=== PATIENT | male | born 1950 | race Hispanic/Latino ===

== ENCOUNTER → 2018-06-17 11:02 | Outpatient (CLI) | payer MEDICARE, OTHER, SELFPAY ==
--- NOTE | 2018-06-17 | DI.CT.S_ITS ---
PROCEDURE: CT CHEST WO CON INDICATIONS: SOLIDARY PULMONARY NODULE TECHNIQUE: Noncontrast 2.0-2.5 mm thick sections acquired from the pulmonary apices to the posterior costophrenic angles. 7 mm thick coronal and sagittal MIP reformats were then acquired. A low radiation dose technique was utilized. COMPARISON: [facility], CT, ABDOMEN WITH CONTRAST, 04/02/2013, 10:06. [facility], CT, CHEST/ABD/PEL WITH CONTRAST, 11/25/2017, 22:25. FINDINGS: Image quality: Diagnostic, given the low radiation dose technique. Lungs and pleura: A 5 mm short axis dimension radiodensity seen at or immediately adjacent to the major fissure on the right (series 2 image 101) has not changed from the prior CT scan 11/25/17 and also the remote distant past CT scan 04/02/13. No new nodule has developed. Mediastinum: Heart size is normal. No pericardial effusion. No mediastinal adenopathy by size criteria. Thoracic aorta and central pulmonary arteries are normal in size. Esophagus is normal in caliber. No hiatal hernia. Bones and chest wall: No suspicious bony lesions. No vertebral body compression fractures. No axillary or supraclavicular adenopathy by size criteria. Thyroid gland appears normal. Abdomen: Visualized upper abdomen solid organs and bowel loops appear normal in the absence of contrast. IMPRESSION: Benign small nodular radiodensity anterolateral right lower lung has been stable over time since at least March of 2013. No new lesion has developed, no followup necessary. Dictated by: Juan Arredondo M.D. on 06/17/2018 at 13:42 Approved by: Juan Arredondo M.D. on 06/17/2018 at 13:47
== END ==
PROVIDERS: PCP Family Medicine; Visit Provider Family Medicine
DX: R91.1 Solitary pulmonary nodule (principal)
CPT/HCPCS: 71250

== ENCOUNTER → 2019-06-09 09:34 | Outpatient (CLI) | payer MEDICARE, OTHER, SELFPAY ==
--- NOTE | 2019-06-09 | DI.MRI.S_ITS ---
PROCEDURE: MR SHOULDER RT WO CON INDICATIONS: RIGHT SHOULDER PAIN TECHNIQUE: Noncontrast oblique coronal T2 fast spin echo with fat saturation, oblique sagittal T1 spin echo and T2 fast spin echo with fat saturation, axial T1 spin echo and T2 fast spin echo with fat saturation through the shoulder. COMPARISON: None. FINDINGS: Image quality: Excellent. Rotator cuff: There is tendinosis and moderate grade articular and bursal surface partial-thickness tear involving anterior to mid fibers of the distal supraspinatus at the insertion on the humeral head extending to musculotendinous junction. Distal infraspinatus tendinosis is seen. Distal subscapularis tendon is intact. No full-thickness rotator cuff tendon rupture. Sagittal images demonstrate no significant rotator cuff muscle atrophy. Bones and bursae: No bone marrow contusions or fractures. Moderate acromioclavicular joint osteoarthritis is seen with prominent marginal osteophyte formation compressing the musculotendinous junction of supraspinatus. Mild to moderate glenohumeral joint osteoarthritis is also seen.. No pathologic subacromial-subdeltoid or subcoracoid bursal fluid is present. Capsule and soft tissues: In the absence of intra-articular contrast, there is suggestion of superior anterior labral tear at 12 to 2:00 position with adjacent 5-6 mm miracle-labral cyst. The glenohumeral ligaments appear intact. The long head of the biceps tendon demonstrates normal location and morphology. The rotator interval appears normal, without fibrosis. The coracohumeral ligament is normal in thickness. IMPRESSION: 1. Tendinosis and moderate grade articular and bursal surface partial-thickness tear involving anterior to mid fibers of the supraspinatus extending to musculotendinous junction. Distal infraspinatus tendinosis. 2. Moderate acromioclavicular joint osteoarthritis. Mild to moderate glenohumeral joint osteophytes. 3. Suggestion of superior anterior labral tear at 12 to 2:00 position with 5 mm adjacent miracle-labral cyst. Dictated by: Sid Raphael M.D. on 06/09/2019 at 13:50 Approved by: Sid Raphael M.D. on 06/09/2019 at 14:08
== END ==
PROVIDERS: PCP Family Medicine; Visit Provider Family Medicine
DX: M19.011 Primary osteoarthritis, right shoulder (principal)
CPT/HCPCS: 73221

== ENCOUNTER 2020-01-20 17:58 | Emergency (ER) | payer MEDICARE, OTHER, SELFPAY ==
[2020-01-20 18:08] VITALS: BP 205/112; PULSE 58; RESP 20; TEMP 37.7; O2SAT 98; BMI 25.9
--- NOTE | 2020-01-20 18:40 | ED_ITS ---
HPI - Abdominal Pain General Chief Complaint: Abdominal Pain Stated Complaint: STOMACH ISSUES Time Seen by Provider: 01/20/20 18:39 Source: patient Mode of arrival: Ambulatory Limitations: no limitations History of Present Illness HPI narrative: This is a 69-year-old male comes to the emergency department with complaint of epigastric pain. Patient states pain most recently started Thursday and has been intermittent the last 3 days. He states he is quite uncomfortable. He states it does not radiate to his chest, does not radiate to his back, does not radiate to his abdomen flanks or elsewhere. 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 His blood pressure is quite elevated he states he takes ramipril 10 mg but has not been able to keep it down for the last 3 days. He has not had fevers. He has been vomiting, he has not had a bowel movement in 2 or 3 days but states he is passing flatus occasionally and burping a lot. He denies any fevers. He denies any chest pain or cough. He denies any other medical issues and states he has also had shoulder surgery and other orthopedic surgery. Patient lives on [facility] and is asking that he be discharged prior to [place] ferry at 9[place] and if we unable to accomplish this we keep him in the department. He denies any other medical issues. He smokes marijuana regularly denies illicit, he drinks alcohol occasionally, denies any current tobacco. Related Data Home Medications Medication Instructions Recorded Confirmed IRON HEME POLYPEPTIDE (Proferrin) #0 04/02/13 OXYCODONE HCL/ACETAMINOPHEN 1 tab PO Q4HP #0 04/02/13 (Oxycodone-Acetaminophen 5-500) ondansetron HCl 8 #0 04/02/13 ramipril [Altace] 10 mg PO Q DAY #0 04/02/13 amoxicillin 500 mg PO BID #0 04/28/13 omeprazole 20 mg PO BID #0 04/28/13 Previous Rx's Medication Instructions Recorded ondansetron [Zofran ODT] 4 mg SUBLINGUAL Q6HP PRN #5 odt 11/26/17 oxycodone-acetaminophen [Percocet] 1 tab PO Q6HP PRN #10 tab 11/26/17 omeprazole 40 mg PO DAILY #30 cap 01/20/20 ondansetron HCl [Zofran] 4 mg PO Q6H PRN #5 tab 01/20/20 Allergies Allergy/AdvReac Type Severity Reaction Status Date / Time No Known Drug Allergies Allergy Verified 01/20/20 18:08 Review of Systems Review of Systems ROS Unobtainable: All systems reviewed & are unremarkable except as noted in HPI and below Patient History Surgical History (Updated 01/20/20 @ 18:59 by Soheila Pacheco DO) H/O Billroth II operation (Acute) H/O shoulder surgery (Acute) Exam Narrative Exam Narrative: GENERAL: Alert and oriented x three, well-nourished male in moderate distress. HEENT: Head normocephalic, atraumatic, EOMI, pupils reactive, face symmetric, moist mucous membranes NECK: Supple, full range of motion CARDIOVASCULAR: Regular rate and rhythm without murmurs, rubs or gallops. RESPIRATORY: Breath sounds equal bilaterally, no wheezes rales or rhonchi. ABDOMEN: Soft, positive for epigastric tenderness. Patient has nontender elsewhere including right upper quadrant. Normoactive bowel sounds all 4 quadrants. No guarding or rebound, rigidity, no mass, nondistended. : No CVA tenderness EXTREMITIES: Normal range of motion, no clubbing or edema. Neurovascularly intact NEUROLOGICAL: Cranial nerves II through XII grossly intact. Moving all extremities SKIN: Warm, dry, no petechiae, no rashes or lesions. Initial Vital Signs Initial Vital Signs: Vital Signs Temperature 99.9 F H 01/20/20 18:08 Pulse Rate 58 L 01/20/20 18:08 Respiratory Rate 20 01/20/20 18:08 Blood Pressure 205/112 H 01/20/20 18:08 Pulse Oximetry 98 01/20/20 18:08 Course Orders Ordered: ED Orders 01/20/20 18:10 EKG-12 Lead Stat 01/20/20 18:42 Complete Blood Count AUTO DIFF Stat Comprehensive Metabolic Panel Stat Lipase Stat Partial Thromboplastin Time Stat Prothrombin Time INR Stat Troponin & CK Cardiac Panel Stat Urine Microscopic Stat 01/20/20 18:54 CT abdomen pelvis w con Stat Discontinued Medications Sodium Chloride (Normal Saline 0.9%) 1,000 mls @ 1,000 mls/hr IV BOLUS ONE Stop: 01/20/20 20:08 Last Admin: 01/20/20 19:35 Dose: 1,000 mls/hr Documented by: [email or web address] Morphine Sulfate (Morphine) 4 mg IV NOW ONE Stop: 01/20/20 18:56 Last Admin: 01/20/20 19:04 Dose: 4 mg Documented by: [email or web address] Ondansetron HCl (Zofran) 4 mg IV NOW ONE Stop: 01/20/20 18:55 Last Admin: 01/20/20 19:03 Dose: 4 mg Documented by: [email or web address] Pantoprazole Sodium (Protonix) 40 mg IV NOW ONE Stop: 01/20/20 18:55 Last Admin: 01/20/20 19:03 Dose: 40 mg Documented by: [email or web address] Vital Signs Vital signs: Vital Signs - 8 hr 01/20/20 18:08 01/20/20 19:00 01/20/20 19:38 Temperature 99.9 F H Pulse Rate 58 L 56 L 54 L Respiratory Rate 20 24 16 Blood Pressure 205/112 H Blood Pressure [Right Arm] 202/98 H 145/72 H Pulse Oximetry 98 100 98 01/20/20 20:07 01/20/20 20:10 Temperature Pulse Rate 49 L 54 L Respiratory Rate 13 16 Blood Pressure 145/73 H Blood Pressure [Right Arm] 143/74 H Pulse Oximetry 98 98 MDM - Abdominal Pain Lab Data Attestation: I reviewed the patient's lab results. Result diagrams: 01/20/20 18:42 01/20/20 18:42 Labs: Lab Results 01/20/20 01/20/20 01/20/20 Range/Units 18:42 18:42 18:42 WBC 8.1 (4.5-11.0) X10^3/uL RBC 4.80 (4.5-5.9) X10^6/uL Hgb 15.5 (13.5-17.5) g/dL Hct 43.6 (41-53) % MCV 90.8 (80-100) fL MCH 32.3 (26-34) PG MCHC 35.6 (30-36) % RDW 13.0 (11.6-14.8) % Plt Count 243 (150-400) X10^3/uL Neut % (Auto) 79.8 H (50-75) % Lymph % (Auto) 14.5 L (25-40) % [place] % (Auto) 5.4 (3-14) % Eos % (Auto) 0.0 L (2-4) % Baso % (Auto) 0.3 (0-2) % Neut # (Auto) 6500 (4119-9440) /uL Lymph # (Auto) 1200 (2883-9427) /uL [place] # (Auto) 400 (0-900) /uL Eos # (Auto) 0 (0-450) /uL Baso # (Auto) 0 (0-100) /uL PT 12.3 (10.1-12.7) SECONDS INR 1.1 (0.9-1.3) APTT 32 (26.4-36.2) SECONDS Sodium 134 L (137-145) mmol/L Potassium 3.9 (3.4-5.1) mmol/L Chloride 100 (98-107) mmol/L Carbon Dioxide 23 (22-32) mmol/L BUN 16 (9-20) mg/dL Creatinine 0.90 (0.66-1.25) mg/dL Estimated GFR > 60.0 (>60) mL/min BUN/Creatinine Ratio 17.8 (6-22) Glucose 126 H (80-110) mg/dL Calcium 9.2 (8.4-10.2) mg/dL Total Bilirubin 1.0 (0.2-1.3) mg/dL AST 36 (17-59) IU/L ALT 24 (<50) IU/L Alkaline Phosphatase 66 (38-126) U/L Total Creatine Kinase (55-170) U/L CK-MB (CK-2) (<2.37) ng/mL CK-MB (CK-2) Rel Index (1.5-5.0) % Troponin I (0.01-0.034) ng/mL Total Protein 7.5 (6.3-8.2) g/dL Albumin 4.4 (3.5-5.0) g/dL Globulin 3.1 (1.7-4.1) g/dL Albumin/Globulin Ratio 1.4 (1.0-2.8) Lipase 55 (23-300) U/L Urine RBC (0-5/HPF) Urine WBC (0-5/HPF) Ur Squamous Epith Cells (0-5/HPF) Urine Bacteria (None) Urine Mucus (Negative) Ur Culture Indicated? 01/20/20 01/20/20 Range/Units 18:42 18:42 WBC (4.5-11.0) X10^3/uL RBC (4.5-5.9) X10^6/uL Hgb (13.5-17.5) g/dL Hct (41-53) % MCV (80-100) fL MCH (26-34) PG MCHC (30-36) % RDW (11.6-14.8) % Plt Count (150-400) X10^3/uL Neut % (Auto) (50-75) % Lymph % (Auto) (25-40) % [place] % (Auto) (3-14) % Eos % (Auto) (2-4) % Baso % (Auto) (0-2) % Neut # (Auto) (2308-3443) /uL Lymph # (Auto) (2115-9781) /uL [place] # (Auto) (0-900) /uL Eos # (Auto) (0-450) /uL Baso # (Auto) (0-100) /uL PT (10.1-12.7) SECONDS INR (0.9-1.3) APTT (26.4-36.2) SECONDS Sodium (137-145) mmol/L Potassium (3.4-5.1) mmol/L Chloride (98-107) mmol/L Carbon Dioxide (22-32) mmol/L BUN (9-20) mg/dL Creatinine (0.66-1.25) mg/dL Estimated GFR (>60) mL/min BUN/Creatinine Ratio (6-22) Glucose (80-110) mg/dL Calcium (8.4-10.2) mg/dL Total Bilirubin (0.2-1.3) mg/dL AST (17-59) IU/L ALT (<50) IU/L Alkaline Phosphatase (38-126) U/L Total Creatine Kinase 267 H (55-170) U/L CK-MB (CK-2) 1.41 (<2.37) ng/mL CK-MB (CK-2) Rel Index 0.5 L (1.5-5.0) % Troponin I < 0.012 (0.01-0.034) ng/mL Total Protein (6.3-8.2) g/dL Albumin (3.5-5.0) g/dL Globulin (1.7-4.1) g/dL Albumin/Globulin Ratio (1.0-2.8) Lipase (23-300) U/L Urine RBC 0-1/hpf (0-5/HPF) Urine WBC 0-1/hpf (0-5/HPF) Ur Squamous Epith Cells 0-1 /hpf (0-5/HPF) Urine Bacteria Occasional (0-1) (None) Urine Mucus 1+ H (Negative) Ur Culture Indicated? Cult not indicated Point of care testing: Urine Dip Bedside Urine Glucose Negative Bedside Urine Bilirubin - Negative Bedside Urine Ketone +++ 80 Urine Specific [place] 1.025 Bedside Urine Occult Blood +/- Bedside Urine pH 6.0 Bedside Urine Protein +/- 15 Bedside Urine Urobilinogen +/- 1mg Bedside Urine Nitrite - Negative Bedside Urine Leukocytes - Negative Esterase Imaging Data CT scan - abdomen/pelvis: Radiologist's Impression: [place] [address] CT Scan Report Signed Patient: Angel Angeles LMR#: [id number] : 2Acct:[id number] Age/Sex: 69 / MDate of Service: 01/20/20 Loc: ED Accession Number: [id number] Procedure: CT abdomen pelvis w con Ordering Provider: Soheial Pacheco D.O. PROCEDURE: CT ABDOMEN PELVIS W CON INDICATIONS: epigastric pain, intermittent, hx bilroth sx for ulcer TECHNIQUE: After the administration of intravenous contrast, 5 mm thick sections acquired from the diaphragm to the symphysis. 5 mm coronal and sagittal reformats were acquired. For radiation dose reduction, the following was used: automated exposure control, adjustment of mA and/or kV according to patient size. COMPARISON: [facility], CT, CHEST/ABD/PEL WITH CONTRAST, 11/25/2017, 22:25. [facility], CT, CT CHEST WO CON, 06/17/2018, 11:04. FINDINGS: Image quality: Excellent. ABDOMEN: Lung bases: Lung bases are clear. Heart size is normal. Solid organs: Liver is normal in size and enhancement. Gallbladder appears normal. Biliary system is non dilated. Pancreas enhances normally. Spleen is normal in size and enhancement. No adrenal nodules. Kidneys demonstrate normal size and enhancement, without hydronephrosis. Note is made of a 4 mm calculus that is nonobstructive at the upper third collecting system of the left kidney and also a punctate 1 mm calculus at the anterior lower third collecting system, also nonobstructive. Through the ureter s bilaterally no calculus is found. Several pelvic phleboliths are present near the course of the ureters but these do not represent ureteral stones given the presence of prior CT scan he from November 2017. Peritoneum and bowel: Bowel loops demonstrate normal wall thickness and caliber. No free fluid or air. Nodes and vessels: No retroperitoneal or mesenteric adenopathy by size criteria. Aorta and inferior vena cava are normal in size. Miscellaneous: No ventral hernias. PELVIS: Genitourinary: Bladder wall thickness is normal. Miscellaneous: No inguinal hernias or adenopathy. Bones: No suspicious bony lesions. No vertebral body compression fractures. IMPRESSION: A source of current symptomatology is not found. Scattered surgical clips over the upper abdomen are noted consistent with the stated clinical history of Billroth surgery. No sign of recurrent peptic ulcer disease. Nonobstructive calculi present left kidney, no associated inflammation involving the renal cortex is present. Dictated by: Juan Arredondo M.D. on 01/20/2020 at 19:41 Approved by: Juan Arredondo M.D. on 01/20/2020 at 19:45 ECG Data Attestation: I personally reviewed and interpreted this ECG as follows: Prior ECG tracings: available for review Interpretation: Sinus bradycardia rate of 48, P are 147 QRS 87 QTC of 434. Patient has appears to be left atrial inversion management and LVH noted on EKG T-waves are inverted in V2 and V3. Patient has prior EKG from 04/02/2013 which does appear fairly similar. [facility] Narrative Medical decision making narrative: Patient comes in with several days of epigastric pain which has been intermittent and reoccurring in the past. Patient is tender in the epigastric region his labs show neutrophils 79% but otherwise normal CBC, coags are negative, sodium is 134 with a glucose of 126 and normal renal function electrolytes. Patient's liver enzymes as well as lipase are normal range. Patient has a total CK of 267 which is elevated and a low CK-MB relative index. Patient's troponin is also negative. He does have what appears to be LVH on his EKG but does appear similar to a prior EKG from [address] shows some old kidney stones about are unlikely cause of his pain based on his location and they are in the collecting system. Discussed with patient he could potentially have a recurrence of ulcer which may have caused his symptoms although he did have an EGD in June in [place] which was negative according to the patient. At this time I would recommend continuing omeprazole or a similar type medication daily and follow-up with GI or General surgery for further evaluation. Patient's blood pressure was quite elevated initially on arrival but has improved significantly after his pain has improved. Discharge Plan Departure Patient Disposition: Home Clinical Impression: Abdominal pain Qualifiers: Abdominal location: epigastric Qualified Code(s): R10.13 - Epigastric pain Discharge Date/Time: 01/20/20 20:10 Instructions: DI for Abdominal Pain-Adult Activity Restrictions/Additional Instructions: Follow-up with Gastroenterology or General surgery for possibly a repeat EGD or evaluation in the future. They may also suggest some other possible treatments or evaluations. I would recommend continuing omeprazole 40 mg daily as well as your home blood pressure medication. Take Zofran 1 tablet every 6 hours as needed for nausea. Return to the ER for fevers greater 100.4 F, persistent vomiting, black emesis or bloody emesis black or bloody stool, new chest pain, shortness of breath, passing out or other new or concerning symptoms. Prescriptions: New omeprazole 40 mg capsule,delayed release(DR/EC) 40 mg PO DAILY Qty: 30 RF: 0 ondansetron HCl [Zofran] 4 mg tablet 4 mg PO Q6H PRN (Reason: nausea and vomiting) Qty: 5 RF: 0 No Action ondansetron HCl 8 MG tablet 8 Qty: 0 RF: 0 OXYCODONE HCL/ACETAMINOPHEN (Oxycodone-Acetaminophen 5-500) 1 tab PO Q4HP Qty: 0 RF: 0 ramipril [Altace] 10 MG capsule 10 mg PO Q DAY Qty: 0 RF: 0 IRON HEME POLYPEPTIDE (Proferrin) Qty: 0 RF: 0 amoxicillin 250 MG capsule 500 mg PO BID Qty: 0 RF: 0 omeprazole 20 MG capsule,delayed release(DR/EC) 20 mg PO BID Qty: 0 RF: 0 ondansetron [Zofran ODT] 4 MG tablet,disintegrating 4 mg Sublingual Q6HP PRNQty: 5 RF: 0 oxycodone-acetaminophen [Percocet] 5 MG/325 MG tablet 1 tab PO Q6HP PRNQty: 10 RF: 0 Referrals: Ludin Smith MD [Primary Care Provider] -
[2020-01-20 18:48] LABS: Add Manual Diff / Slide Review NO; Basophils Absolute Auto 0 /uL (0-100); Basophils Percent Auto 0.3 % (0-2); Eosinophils Absolute Auto 0 /uL (0-450); Hematocrit 43.6 % (41-53); Hemoglobin 15.5 g/dL (13.5-17.5); Lymphocytes Absolute Auto 1200 /uL (1100-4500); Lymphocytes Percent Auto 14.5 % (25-40); Mean Corpuscular HGB Conc 35.6 % (30-36); Mean Corpuscular Hemoglobin 32.3 PG (26-34); Mean Corpuscular Volume 90.8 fL (80-100); Monocytes Absolute Auto 400 /uL (0-900); Monocytes Percent Auto 5.4 % (3-14); Neutrophils Absolute Auto 6500 /uL (1500-7000); Neutrophils Percent Auto 79.8 % (50-75); Platelet Count 243 X10^3/uL (150-400); White Blood Cell Count 8.1 X10^3/uL (4.5-11.0)
--- NOTE | 2020-01-20 18:54 | DI.CT.S_ITS ---
PROCEDURE: CT ABDOMEN PELVIS W CON INDICATIONS: epigastric pain, intermittent, hx bilroth sx for ulcer TECHNIQUE: After the administration of intravenous contrast, 5 mm thick sections acquired from the diaphragm to the symphysis. 5 mm coronal and sagittal reformats were acquired. For radiation dose reduction, the following was used: automated exposure control, adjustment of mA and/or kV according to patient size. COMPARISON: [facility], CT, CHEST/ABD/PEL WITH CONTRAST, 11/25/2017, 22:25. [facility], CT, CT CHEST WO CON, 06/17/2018, 11:04. FINDINGS: Image quality: Excellent. ABDOMEN: Lung bases: Lung bases are clear. Heart size is normal. Solid organs: Liver is normal in size and enhancement. Gallbladder appears normal. Biliary system is non dilated. Pancreas enhances normally. Spleen is normal in size and enhancement. No adrenal nodules. Kidneys demonstrate normal size and enhancement, without hydronephrosis. Note is made of a 4 mm calculus that is nonobstructive at the upper third collecting system of the left kidney and also a punctate 1 mm calculus at the anterior lower third collecting system, also nonobstructive. Through the ureters bilaterally no calculus is found. Several pelvic phleboliths are present near the course of the ureters but these do not represent ureteral stones given the presence of prior CT scan he from November 2017. Peritoneum and bowel: Bowel loops demonstrate normal wall thickness and caliber. No free fluid or air. Nodes and vessels: No retroperitoneal or mesenteric adenopathy by size criteria. Aorta and inferior vena cava are normal in size. Miscellaneous: No ventral hernias. PELVIS: Genitourinary: Bladder wall thickness is normal. Miscellaneous: No inguinal hernias or adenopathy. Bones: No suspicious bony lesions. No vertebral body compression fractures. IMPRESSION: A source of current symptomatology is not found. Scattered surgical clips over the upper abdomen are noted consistent with the stated clinical history of Billroth surgery. No sign of recurrent peptic ulcer disease. Nonobstructive calculi present left kidney, no associated inflammation involving the renal cortex is present. Dictated by: Juan Arredondo M.D. on 01/20/2020 at 19:41 Approved by: Juan Arredondo M.D. on 01/20/2020 at 19:45
[2020-01-20 18:56] LABS: INR 1.1 (0.9-1.3); Prothrombin Time 12.3 SECONDS (10.1-12.7)
[2020-01-20 18:59] LABS: PTT Partial Thromboplastin Tim 32 SECONDS (26.4-36.2)
[2020-01-20 19:00] VITALS: BP 202/98; PULSE 56; RESP 24; O2SAT 100
[2020-01-20 19:01] LABS: Alanine Aminotransferase 24 IU/L (<50); Albumin 4.4 g/dL (3.5-5.0); Albumin Globulin Ratio 1.4 (1.0-2.8); Alkaline Phosphatase 66 U/L (38-126); Aspartate Aminotransferase 36 IU/L (17-59); BUN Creatinine Ratio 17.8 (6-22); Blood Urea Nitrogen 16 mg/dL (9-20); Calcium 9.2 mg/dL (8.4-10.2); Carbon Dioxide 23 mmol/L (22-32); Chloride 100 mmol/L (98-107); Estimated Glomerular Filt Rate > 60.0 mL/min (>60); Globulin 3.1 g/dL (1.7-4.1); Glucose 126 mg/dL (80-110); HEMOLYSIS 24 (0-50); Lipase 55 U/L (23-300); Potassium 3.9 mmol/L (3.4-5.1); Sodium 134 mmol/L (137-145); Total Protein 7.5 g/dL (6.3-8.2)
[2020-01-20] MEDS: PANTOPRAZOLE 40 MG VIAL IV (19:03)
[2020-01-20] MEDS: ONDANSETRON 4 MG/2 ML INJ IV (19:03)
[2020-01-20 19:04] LABS: Creatine Kinase 267 U/L (55-170)
[2020-01-20] MEDS: MORPHINE 4 MG/ML INJ IV (19:04)
[2020-01-20 19:16] LABS: Troponin I < 0.012 ng/mL (0.01-0.034)
[2020-01-20 19:22] LABS: CKMB % Relative Index 0.5 % (1.5-5.0); Creatine Kinase MB 1.41 ng/mL (<2.37)
[2020-01-20 19:25] LABS: Bacteria Urine Occasional (0-1); Culture Indicated Urine Cult Not Indicated; Mucus Urine 1+ (Negative); RBC Urine 0-1/HPF (0-5/HPF); Squamous Epithelial Cell Urine 0-1 /HPF (0-5/HPF); WBC Urine 0-1/HPF (0-5/HPF)
[2020-01-20] MEDS: SODIUM CHLORIDE 0.9% 1,000 ML 1000 ML IV (19:35)
[2020-01-20 19:38] VITALS: BP 145/72; PULSE 54; RESP 16; O2SAT 98
[2020-01-20 20:07] VITALS: BP 143/74; PULSE 49; RESP 13; O2SAT 98
[2020-01-20 20:10] VITALS: BP 145/73; PULSE 54; RESP 16; O2SAT 98
== END 2020-01-20 20:10 | disposition home or self-care (01) ==
PROVIDERS: Emergency Medicine; Emergency Provider Emergency Medicine; PCP Family Medicine
DX: R10.13 Epigastric pain (principal); Z98.0 Intestinal bypass and anastomosis status
CPT/HCPCS: 36415; 74177; 80053; 81003; 81015; 82550; 82553; 83690; 84484; 85025; 85610; 85730; 93005; 96374; 96375; 99284; C9113; J2270; J2405; Q9967

== ENCOUNTER 2020-03-23 18:00 | Emergency (ER) | payer MEDICARE, OTHER, SELFPAY ==
[2020-03-23 18:10] VITALS: BP 124/76; PULSE 84; RESP 16; TEMP 36.4; O2SAT 98; BMI 25.1
--- NOTE | 2020-03-23 19:01 | ED.GENADULT ---
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 The surgery had been done at the [facility] and postop notes indicate that things went well. Patient was discharged approximately a week ago. He has been trying to wean himself off of his narcotics and today took only 5 mg of oxycodone. Had been taking this up to 3 times a day previously. He notes increasing hematoma developing oral along his lower abdomen and increasing lower abdominal pain. He reports that he is passing flatus and did have a bowel movement this morning. No fevers, cough, chills, dyspnea. Related Data Home Medications Medication Instructions Recorded Confirmed IRON HEME POLYPEPTIDE (Proferrin) #0 04/02/13 OXYCODONE HCL/ACETAMINOPHEN 1 tab PO Q4HP #0 04/02/13 (Oxycodone-Acetaminophen 5-500) ondansetron HCl 8 #0 04/02/13 ramipril [Altace] 10 mg PO Q DAY #0 04/02/13 amoxicillin 500 mg PO BID #0 04/28/13 omeprazole 20 mg PO BID #0 04/28/13 Previous Rx's Medication Instructions Recorded ondansetron [Zofran ODT] 4 mg SUBLINGUAL Q6HP PRN #5 odt 11/26/17 oxycodone-acetaminophen [Percocet] 1 tab PO Q6HP PRN #10 tab 11/26/17 omeprazole 40 mg PO DAILY #30 cap 01/20/20 ondansetron HCl [Zofran] 4 mg PO Q6H PRN #5 tab 01/20/20 oxycodone 5 mg PO Q6H PRN #10 tab 03/23/20 Allergies Allergy/AdvReac Type Severity Reaction Status Date / Time No Known Drug Allergies Allergy Verified 01/20/20 18:08 Review of Systems Review of Systems Narrative: Pertinent positive and negative findings as per HPI Remainder of review of systems is otherwise unremarkable for Constitutional: Fevers, chills, weakness ENT: No sore throat, neck pain, ear pain CV: Chest pain, palpitations, dyspnea on exertion Respiratory: Cough, wheeze, dyspnea GI: Nausea, vomiting, diarrhea, change in bowel habits, black or bloody stools : Dysuria, hematuria, flank pain MS: Muscle weakness, numbness, joint swelling or warmth Skin: Rashes, nonhealing lesions Neuro: Syncope, dizziness, tingling Psych: Depression, anxiety, suicidal ideation Patient History Surgical History H/O Billroth II operation (Acute) H/O shoulder surgery (Acute) Social History Smoking Status: Current some day smoker Smoking Status: Current some day smoker tobacco type: cigars alcohol intake frequency: holidays/special occasions only Substance Use Type: marijuana Exam Narrative Exam Narrative: General: Healthy appearing, in no acute distress. Able to give a complete and coherent history. Well-nourished well-developed HEENT: Moist mucous membranes, normal sclera with reactive pupils, Neck: No JVD, supple Respiratory: Lungs are clear to auscultation, no wheezing no rales no rhonchi. Full and symmetrical air movement Cardiac: Regular rate and rhythm no murmurs no bruits Abdomen: Soft . Steri-Strips in place over multiple abdominal port postoperative wounds, all healing nicely. Bruising over the left lower abdomen expanding over the left anterior iliac crest without fluctuant hematoma, abscess or erythema. Mild tenderness in the lower abdomen without rebound or guarding good bowel tones, no flank pain Skin: Warm and dry, no rashes Neurologic: Grossly neurologically intact with no obvious asymmetries or abnormalities Extremities: No trauma, well perfused Psych: Cooperative, appropriate insight and affect Initial Vital Signs Initial Vital Signs: Vital Signs Temperature 97.6 F 03/23/20 18:10 Pulse Rate 84 03/23/20 18:10 Respiratory Rate 16 03/23/20 18:10 Blood Pressure 124/76 03/23/20 18:10 Pulse Oximetry 98 03/23/20 18:10 Course Orders Ordered: ED Orders 03/23/20 19:00 Complete Blood Count AUTO DIFF Stat Comprehensive Metabolic Panel Stat Lipase Stat Partial Thromboplastin Time Stat Prothrombin Time INR Stat 03/23/20 19:13 CT abdomen pelvis w con Stat 03/23/20 20:02 EKG-12 Lead Stat Discontinued Medications Hydromorphone HCl (Dilaudid) 1 mg IV NOW ONE Stop: 03/23/20 19:16 Last Admin: 03/23/20 19:25 Dose: 1 mg Documented by: JEANCARLOS Sodium Chloride (Normal Saline 0.9%) 1,000 mls @ 1,000 mls/hr IV BOLUS ONE Stop: 03/23/20 20:14 Last Infusion: 03/23/20 20:25 Dose: 0 mls/hr Documented by: JOSE ENRIQUE Admin: 03/23/20 19:24 Dose: 1,000 mls/hr Documented by: JEANCARLOS Sodium Chloride (Normal Saline 0.9%) 1,000 mls @ 150 mls/hr IV CONT HAL Last Infusion: 03/23/20 22:30 Dose: 150 mls/hr Documented by: Admin: 03/23/20 20:25 Dose: 150 mls/hr Documented by: JOSE ENRIQUE Ondansetron HCl (Zofran) 4 mg IV NOW ONE Stop: 03/23/20 19:16 Last Admin: 03/23/20 19:25 Dose: 4 mg Documented by: JEANCARLOS Oxycodone/Acetaminophen (Endocet 5/325 Prepack) 1 bottle MISC SEEINSTR ONE Stop: 03/23/20 22:25 Last Admin: 03/23/20 22:32 Dose: 1 bottle Documented by: JEANCARLOS Vital Signs Vital signs: Vital Signs - 8 hr 03/23/20 18:10 03/23/20 22:00 Temperature 97.6 F Pulse Rate 84 65 Respiratory Rate 16 23 Blood Pressure 124/76 Blood Pressure [Left Arm] 124/71 Pulse Oximetry 98 99 Medical Decision Making Medical Records Medical records reviewed: Yes I reviewed the patient's medical records. Lab Data Lab results reviewed: Yes I reviewed the patient's lab results. Result diagrams: 03/23/20 19:00 03/23/20 19:00 Labs: Lab Results 03/23/20 03/23/20 03/23/20 Range/Units 19:00 19:00 19:00 WBC 6.9 (4.5-11.0) X10^3/uL RBC 4.53 (4.5-5.9) X10^6/uL Hgb 14.4 (13.5-17.5) g/dL Hct 41.1 (41-53) % MCV 90.7 (80-100) fL MCH 31.7 (26-34) PG MCHC 35.0 (30-36) % RDW 12.9 (11.6-14.8) % Plt Count 376 (150-400) X10^3/uL Neut % (Auto) 88.3 H (50-75) % Lymph % (Auto) 8.1 L (25-40) % [place] % (Auto) 3.0 (3-14) % Eos % (Auto) 0.1 L (2-4) % Baso % (Auto) 0.5 (0-2) % Neut # (Auto) 6100 (5535-8151) /uL Lymph # (Auto) 600 L (8672-9270) /uL [place] # (Auto) 200 (0-900) /uL Eos # (Auto) 0 (0-450) /uL Baso # (Auto) 0 (0-100) /uL PT 13.1 H (10.1-12.7) SECONDS INR 1.1 (0.9-1.3) APTT 37 H D (26.4-36.2) SECONDS Sodium 137 (137-145) mmol/L Potassium 4.8 (3.4-5.1) mmol/L Chloride 99 (98-107) mmol/L Carbon Dioxide 28 (22-32) mmol/L BUN 17 (9-20) mg/dL Creatinine 0.87 (0.66-1.25) mg/dL Estimated GFR > 60.0 (>60) mL/min BUN/Creatinine Ratio 19.5 (6-22) Glucose 125 H (80-110) mg/dL Calcium 9.4 (8.4-10.2) mg/dL Total Bilirubin 0.6 (0.2-1.3) mg/dL AST 33 (17-59) IU/L ALT 46 (<50) IU/L Alkaline Phosphatase 96 (38-126) U/L Total Protein 7.7 (6.3-8.2) g/dL Albumin 4.3 (3.5-5.0) g/dL Globulin 3.4 (1.7-4.1) g/dL Albumin/Globulin Ratio 1.3 (1.0-2.8) Lipase 80 (23-300) U/L Urine Dip Bedside Urine Glucose Negative Bedside Urine Bilirubin - Negative Bedside Urine Ketone +++ 80 Urine Specific [place] 1.005 Bedside Urine Occult Blood - Negative Bedside Urine Protein +/- 15 Bedside Urine Urobilinogen +/- 1mg Bedside Urine Nitrite - Negative Bedside Urine Leukocytes - Negative Esterase Point of care testing: Urine Dip Bedside Urine Glucose Negative Bedside Urine Bilirubin - Negative Bedside Urine Ketone +++ 80 Urine Specific [place] 1.005 Bedside Urine Occult Blood - Negative Bedside Urine Protein +/- 15 Bedside Urine Urobilinogen +/- 1mg Bedside Urine Nitrite - Negative Bedside Urine Leukocytes - Negative Esterase Imaging Data CT scan - abdomen/pelvis: Radiologist's Impression: IMPRESSION: 1. Postsurgical sequelae. 2. Anterior abdominal wall intermediate density focus, compatible with a small amount of subacute postsurgical hemorrhage. Repeat imaging in 1 week is recommended to ensure resolution. 3. Appendix not seen. No evidence of appendicitis. Dictated by: Crescencio Solis M.D. on 03/23/2020 at 20:01 [facility] Narrative Medical decision making narrative: 69-year-old gentleman presents 6 days after discharge from complicated Carlos-en-Y procedure at the [facility]. He increasing abdominal pain. At this point there is no evidence of acute infection, bowel obstruction or postsurgical complication. I believe he is having some superficial bleeding from some of the port sites that is just now coming to the surface to explain the bruising along the lower abdomen. There is no evidence of retroperitoneal hematoma or other internal bleeding. CT scan is reassuring. The small collection of fluid in the epigastrium a does not correlate with any pain or tenderness and likely is related to postoperative changes at the site of multiple adhesions and difficult surgical revision. Pain significantly improved with small amount of IV pain medication as well as nausea medication. We had a nice discussion regarding appropriate use of pain medication at this point I think the best explanation for the increased pain he is having is simply inadequate postoperative pain control. Patient is safe for home discharge at this time Discharge Plan Departure Patient Disposition: Home Clinical Impression: Post-operative pain Discharge Date/Time: 03/23/20 22:33 Instructions: DI for Abdominal Pain-Adult Activity Restrictions/Additional Instructions: Thank you for coming in today Your labs and CT scan are very reassuring. There is no evidence of infection or complications after your surgery. There is a small amount of fluid collected in the upper portion of your abdomen that to be expected postoperatively. The bleeding your having along the lower abdomen in your flank I suspect is relating to the small port incisions sites and will continue to heal nicely. The fact that you were very appropriately trying to get off your pain medication as quickly as possible is likely the main reason your hurting as much as you are. It is still quite reasonable to be using up to 3 5mg oxycodone pills daily. I agree with your goal of stopping them as soon as possible however, postoperative pain is an appropriate time for narcotic use. If you have fevers, worsening pain, new or challenging symptoms please return to the ER and I am happy to re-evaluate I hope you heal quickly Prescriptions: New oxycodone 5 mg tablet 5 mg PO Q6H PRN (Reason: pain) Qty: 10 RF: 0 No Action ondansetron HCl 8 MG tablet 8 Qty: 0 RF: 0 OXYCODONE HCL/ACETAMINOPHEN (Oxycodone-Acetaminophen 5-500) 1 tab PO Q4HP Qty: 0 RF: 0 ramipril [Altace] 10 MG capsule 10 mg PO Q DAY Qty: 0 RF: 0 IRON HEME POLYPEPTIDE (Proferrin) Qty: 0 RF: 0 amoxicillin 250 MG capsule 500 mg PO BID Qty: 0 RF: 0 omeprazole 20 MG capsule,delayed release(DR/EC) 20 mg PO BID Qty: 0 RF: 0 ondansetron [Zofran ODT] 4 MG tablet,disintegrating 4 mg Sublingual Q6HP PRNQty: 5 RF: 0 oxycodone-acetaminophen [Percocet] 5 MG/325 MG tablet 1 tab PO Q6HP PRNQty: 10 RF: 0 omeprazole 40 mg capsule,delayed release(DR/EC) 40 mg PO DAILY Qty: 30 RF: 0 ondansetron HCl [Zofran] 4 mg tablet 4 mg PO Q6H PRN (Reason: nausea and vomiting) Qty: 5 RF: 0 Referrals: Ludin Smith MD [Primary Care Provider] -
[2020-03-23 19:09] LABS: Add Manual Diff / Slide Review NO; Basophils Absolute Auto 0 /uL (0-100); Basophils Percent Auto 0.5 % (0-2); Eosinophils Absolute Auto 0 /uL (0-450); Eosinophils Percent Auto 0.1 % (2-4); Hematocrit 41.1 % (41-53); Hemoglobin 14.4 g/dL (13.5-17.5); Lymphocytes Absolute Auto 600 /uL (1100-4500); Lymphocytes Percent Auto 8.1 % (25-40); Mean Corpuscular Hemoglobin 31.7 PG (26-34); Mean Corpuscular Volume 90.7 fL (80-100); Monocytes Absolute Auto 200 /uL (0-900); Neutrophils Absolute Auto 6100 /uL (1500-7000); Neutrophils Percent Auto 88.3 % (50-75); Platelet Count 376 X10^3/uL (150-400); Red Blood Cell Count 4.53 X10^6/uL (4.5-5.9); Red Cell Distribution Width 12.9 % (11.6-14.8); White Blood Cell Count 6.9 X10^3/uL (4.5-11.0)
--- NOTE | 2020-03-23 19:13 | DI.CT.S_ITS ---
PROCEDURE: CT ABDOMEN PELVIS W CON INDICATIONS: Carlos-en-Y last week. prior bilrothII. low abd pain TECHNIQUE: After the administration of intravenous contrast, 5 mm thick sections acquired from the diaphragm to the symphysis. 5 mm coronal and sagittal reformats were acquired. For radiation dose reduction, the following was used: automated exposure control, adjustment of mA and/or kV according to patient size. COMPARISON: [facility], CT, CT ABDOMEN PELVIS W CON, 01/20/2020, 19:05. FINDINGS: Image quality: Excellent. ABDOMEN: Lung bases: Lung bases are clear. Heart size is normal. Solid organs: Liver is normal in size and enhancement. Gallbladder is within normal limits. Biliary system is non dilated. Pancreas enhances normally. Spleen is normal in size and enhancement. No adrenal nodules. Kidneys demonstrate normal size and enhancement, without hydronephrosis. Nonobstructing 2 mm calculus within the inferior pole left kidney. Nonobstructing 4 mm diameter calculus within the superior pole left kidney. Peritoneum and bowel: Bowel loops demonstrate normal wall thickness and caliber. Carlos-en-Y has been performed. No free fluid or air. There is an intermediate density focus within the anterosuperior abdomen measuring roughly 83 mm transverse by 30 mm anteroposterior, demonstrating Hounsfield units of 54, compatible with a small amount of subacute/ postsurgical hemorrhage. No peripherally enhancing fluid collection to indicate abscess. Appendix is not seen. No evidence of appendicitis. Nodes and vessels: No retroperitoneal or mesenteric adenopathy by size criteria. Aorta and inferior vena cava are normal in size. Miscellaneous: No ventral hernias. PELVIS: Genitourinary: Bladder wall thickness is normal. Miscellaneous: No inguinal hernias or adenopathy. Bones: No suspicious bony lesions. No vertebral body compression fractures. IMPRESSION: 1. Postsurgical sequelae. 2. Anterior abdominal wall intermediate density focus, compatible with a small amount of subacute postsurgical hemorrhage. Repeat imaging in 1 week is recommended to ensure resolution. 3. Appendix not seen. No evidence of appendicitis. Dictated by: Crescencio Solis M.D. on 03/23/2020 at 20:01 Approved by: Crescencio Solis M.D. on 03/23/2020 at 20:06
[2020-03-23 19:15] LABS: INR 1.1 (0.9-1.3); Prothrombin Time 13.1 SECONDS (10.1-12.7)
[2020-03-23 19:18] LABS: PTT Partial Thromboplastin Tim 37 SECONDS (26.4-36.2)
[2020-03-23 19:20] LABS: Alanine Aminotransferase 46 IU/L (<50); Albumin 4.3 g/dL (3.5-5.0); Albumin Globulin Ratio 1.3 (1.0-2.8); Alkaline Phosphatase 96 U/L (38-126); Aspartate Aminotransferase 33 IU/L (17-59); BUN Creatinine Ratio 19.5 (6-22); Bilirubin Total 0.6 mg/dL (0.2-1.3); Blood Urea Nitrogen 17 mg/dL (9-20); Calcium 9.4 mg/dL (8.4-10.2); Carbon Dioxide 28 mmol/L (22-32); Chloride 99 mmol/L (98-107); Estimated Glomerular Filt Rate > 60.0 mL/min (>60); Globulin 3.4 g/dL (1.7-4.1); Glucose 125 mg/dL (80-110); HEMOLYSIS < 15 (0-50); Lipase 80 U/L (23-300); Potassium 4.8 mmol/L (3.4-5.1); Sodium 137 mmol/L (137-145); Total Protein 7.7 g/dL (6.3-8.2)
[2020-03-23] MEDS: SODIUM CHLORIDE 0.9% 1,000 ML 1000 ML IV (19:24)
[2020-03-23] MEDS: HYDROMORPHONE 1 MG INJ IV (19:25)
[2020-03-23] MEDS: ONDANSETRON 4 MG/2 ML INJ IV (19:25)
[2020-03-23] MEDS: SODIUM CHLORIDE 0.9% 1,000 ML 150 ML IV (20:25)
--- NOTE | 2020-03-23 20:36 | PC.NURSE ---
Pt denies pain with rest after pain/nausea meds given. Intermittent burping/nausea. Spouse at bedside
[2020-03-23 22:00] VITALS: BP 124/71; PULSE 65; RESP 23; O2SAT 99
[2020-03-23] MEDS: OXYCODONE/APAP 5/325 PREPACK 1 BOTTLE MISC (22:32)
== END 2020-03-23 22:33 | disposition home or self-care (01) ==
PROVIDERS: Emergency Provider Emergency Medicine; PCP Family Medicine
DX: G89.18 Other acute postprocedural pain (principal); R10.9 Unspecified abdominal pain; R11.0 Nausea
CPT/HCPCS: 36415; 74177; 80053; 81003; 83690; 85025; 85610; 85730; 93005; 96361; 96374; 96375; 99284; J1170; J2405

== ENCOUNTER 2020-03-25 23:33 | Emergency (ER) | payer MEDICARE, OTHER, SELFPAY ==
[2020-03-25 23:43] VITALS: BP 223/104; PULSE 54; RESP 22; TEMP 36.8; O2SAT 100
[2020-03-26 00:11] LABS: Add Manual Diff / Slide Review NO; Basophils Absolute Auto 0 /uL (0-100); Basophils Percent Auto 0.5 % (0-2); Eosinophils Absolute Auto 0 /uL (0-450); Eosinophils Percent Auto 0.2 % (2-4); Hematocrit 41.8 % (41-53); Hemoglobin 14.4 g/dL (13.5-17.5); Lymphocytes Absolute Auto 1100 /uL (1100-4500); Lymphocytes Percent Auto 12.6 % (25-40); Mean Corpuscular HGB Conc 34.5 % (30-36); Mean Corpuscular Hemoglobin 31.2 PG (26-34); Mean Corpuscular Volume 90.4 fL (80-100); Monocytes Absolute Auto 400 /uL (0-900); Monocytes Percent Auto 5.2 % (3-14); Neutrophils Absolute Auto 7000 /uL (1500-7000); Neutrophils Percent Auto 81.5 % (50-75); Platelet Count 413 X10^3/uL (150-400); Red Blood Cell Count 4.63 X10^6/uL (4.5-5.9); Red Cell Distribution Width 12.8 % (11.6-14.8); White Blood Cell Count 8.5 X10^3/uL (4.5-11.0)
--- NOTE | 2020-03-26 00:11 | DI.CT.S_ITS ---
PROCEDURE: CT ABDOMEN PELVIS W CON INDICATIONS: Recent Carlos-en-Y surgery. Rule out small-bowel obstruction. TECHNIQUE: After the administration of intravenous contrast, 5 mm thick sections acquired from the diaphragm to the symphysis. 5 mm coronal and sagittal reformats were acquired. For radiation dose reduction, the following was used: automated exposure control, adjustment of mA and/or kV according to patient size. COMPARISON: [facility], CT, CT ABDOMEN PELVIS W CON, 03/23/2020, 19:42. FINDINGS: Image quality: Excellent. ABDOMEN: Lung bases: Lung bases are clear. Heart size is normal. Solid organs: Liver is normal in size and enhancement. Gallbladder is normal. Biliary system is non dilated. Pancreas enhances normally. Spleen is normal in size and enhancement. No adrenal nodules. Kidneys demonstrate normal size and enhancement, without hydronephrosis. Peritoneum and bowel: There are postsurgical changes related to gastric bypass. There is thickening of the proximal jejunum at the gastrojejunostomy. The gastric antrum and proximal duodenum also appear mildly thickened. There is mild thickening of transverse colon. No findings to suggest small bowel obstruction. Bowel loops demonstrate normal wall thickness and caliber. No free fluid or air. Nodes and vessels: No retroperitoneal or mesenteric adenopathy by size criteria. Aorta and inferior vena cava are normal in size. Miscellaneous: No ventral hernias. PELVIS: Genitourinary: Bladder wall thickness is normal. Miscellaneous: No inguinal hernias or adenopathy. Bones: No suspicious bony lesions. No vertebral body compression fractures. IMPRESSION: 1. No small bowel obstruction. 2. Postsurgical changes related to gastric bypass. There is thickening of the proximal jejunum at the gastrojejunostomy. The gastric antrum and proximal duodenum also appear mildly thickened. If clinically indicated, repeat exam with oral contrast may be helpful. 3. Mild thickening of transverse colon suggesting mild colitis. Dictated by: Edin Deshpande M.D. on 03/26/2020 at 8:07 Approved by: Edin Deshpande M.D. on 03/26/2020 at 8:23
[2020-03-26] MEDS: SODIUM CHLORIDE 0.9% 1,000 ML 150 ML IV (00:12)
--- NOTE | 2020-03-26 00:13 | ED_ITS ---
HPI - Abdominal Pain General Chief Complaint: Abdominal Pain Stated Complaint: abd surgery [id number] now nausea cramping Time Seen by Provider: 03/26/20 00:03 Source: patient Mode of arrival: Ambulatory Limitations: no limitations History of Present Illness HPI narrative: The patient has a history of a Billroth II surgery. Full medical records are not available, he tells me the surgery was done due to ongoing epigastric pain and nausea vomiting. He was seen earlier this month at [facility], his surgery was converted to a Carlos-en-Y. Since then he has been seen here for abdominal pain with nausea vomiting. CT of the abdomen showed only postop pain, but there was a density abdominal wall suggesti ng if hematoma. He returns with ongoing nausea and vomiting and epigastric pain. He denies fever chills. He has had no hematemesis. He did have a normal bowel movement earlier today. He is not able to keep fluids down a wall but due to the nausea and vomiting but he does have urine output. He denies dysuria. He has had no fever or chills. He has oxycodone at home, he ran out of [employer]. Related Data Home Medications Medication Instructions Recorded Confirmed IRON HEME POLYPEPTIDE (Proferrin) #0 04/02/13 OXYCODONE HCL/ACETAMINOPHEN 1 tab PO Q4HP #0 04/02/13 (Oxycodone-Acetaminophen 5-500) ondansetron HCl 8 #0 04/02/13 ramipril [Altace] 10 mg PO Q DAY #0 04/02/13 amoxicillin 500 mg PO BID #0 04/28/13 omeprazole 20 mg PO BID #0 04/28/13 Previous Rx's Medication Instructions Recorded ondansetron [Zofran ODT] 4 mg SUBLINGUAL Q6HP PRN #5 odt 11/26/17 oxycodone-acetaminophen [Percocet] 1 tab PO Q6HP PRN #10 tab 11/26/17 omeprazole 40 mg PO DAILY #30 cap 01/20/20 ondansetron HCl [Zofran] 4 mg PO Q6H PRN #5 tab 01/20/20 oxycodone 5 mg PO Q6H PRN #10 tab 03/23/20 hydrocodone-acetaminophen [Dunnigan] 1 tab PO Q4H PRN #15 tab 03/26/20 Allergies Allergy/AdvReac Type Severity Reaction Status Date / Time No Known Drug Allergies Allergy Verified 01/20/20 18:08 Review of Systems Review of Systems ROS Unobtainable: All systems reviewed & are unremarkable except as noted in HPI and below Constitutional Constitutional: Denies chills, Denies fever(s), Denies lethargy and Denies weakness ENT Ears, Nose, Mouth, and Throat: Denies dizziness, Denies post nasal drip and Denies sore throat Cardiovascular Cardiovascular: Denies chest pain, Denies lightheadedness, Denies dyspnea and Denies orthopnea Respiratory Respiratory: Denies cough and Denies dyspnea Gastrointestinal Gastrointestinal: Reports abdominal pain, Denies change in bowel habits, Denies diarrhea, Reports nausea and Reports vomiting Musculoskeletal Musculoskeletal: Denies back pain Integumentary/Breasts Skin/Breast: Denies pruritus, Denies erythema, Denies rash and Denies wounds Neurologic Neurologic: Denies dizziness and Denies weakness Patient History Surgical History H/O Billroth II operation (Acute) H/O shoulder surgery (Acute) Social History Smoking Status: Current some day smoker Smoking Status: Current some day smoker tobacco type: cigars alcohol intake frequency: holidays/special occasions only Substance Use Type: marijuana Exam Initial Vital Signs Initial Vital Signs: Vital Signs Temperature 98.2 F 03/25/20 23:43 Pulse Rate 54 L 03/25/20 23:43 Respiratory Rate 22 03/25/20 23:43 Blood Pressure 223/104 H 03/25/20 23:43 Pulse Oximetry 100 03/25/20 23:43 Const General: cooperative, well developed and acute distress Nutritional Appearance: well nourished [facility] Head: normal to inspection, normocephalic and atraumatic Mouth: oral mucosae normal Throat: posterior oropharynx normal Eyes Cornea: corneas normal Neck Neck: No JVD Resp Effort & Inspection: normal respiratory effort and able to speak in complete sentences Auscultation: clear to auscultation bilaterally, no rales, no rhonchi and no wheezes Cardio Rate: regular rate Rhythm: regular rhythm Heart Sounds: S1 normal, S2 normal, no click, no gallops, no murmurs and no rubs Pulses: normal peripheral pulses GI Inspection: non-distended Palpation: soft, no hepatosplenomegaly, No guarding, No pulsatile mass and No tender Auscultation: hypoactive bowel sounds Back/Spine/Pelvis Back: No CVA tenderness Skin General: no rashes or lesions noted Neuro General: patient alert, patient oriented x3, gait normal and no focal motor deficits Speech: speech normal Extrem General: full ROM, no pedal edema and no calf tenderness Psych Appearance: well kempt Mental Status: mental status grossly normal Attitude: cooperative Thought Content: normal Judgment: judgment good Course Course Course Narrative: The patient's pain and nausea has resolved with IV Dilaudid, IV Zofran, and Toradol. The CT of the abdomen shows no evidence of small-bowel obstruction. Mucosal edema in the transverse colon region. Diffuse mesenteric edema that is improved since last seen. Findings may well be consistent with po stsurgical changes. There is no significant change since the recent abdomen/pelvis CT. I suspect his ceased current symptoms may be also be associated narcotic withdrawal. He did run out of medications prior to escalation of the symptoms earlier today. Orders Ordered: ED Orders 03/25/20 23:59 Complete Blood Count AUTO DIFF Stat Comprehensive Metabolic Panel Stat Lipase Stat 03/26/20 00:11 CT abdomen pelvis w con Stat Hydromorphone HCl (Dilaudid) 1 mg IV Q15MIN PRN PRN Reason: Pain, Severe (7-10) Last Admin: 03/26/20 00:20 Dose: 1 mg Documented by: IZZY Sodium Chloride (Normal Saline 0.9%) 1,000 mls @ 150 mls/hr IV CONT HAL Last Admin: 03/26/20 00:12 Dose: 150 mls/hr Documented by: IZZY Discontinued Medications Hydrocodone Bitart/Acetaminophen (Vicodin 5/325 Prepack) 1 bottle MISC SEEINSTR ONE Stop: 03/26/20 03:08 Sodium Chloride (Normal Saline 0.9%) 1,000 mls @ 1,000 mls/hr IV BOLUS ONE Stop: 03/26/20 01:09 Last Admin: 03/26/20 00:30 Dose: 1,000 mls/hr Documented by: IZZY Ketorolac Tromethamine (Toradol) 30 mg IV NOW ONE Stop: 03/26/20 01:55 Last Admin: 03/26/20 02:17 Dose: 30 mg Documented by: IZZY Ondansetron HCl (Zofran) 8 mg IV NOW ONE Stop: 03/26/20 00:11 Last Admin: 03/26/20 00:20 Dose: 8 mg Documented by: IZZY Ondansetron HCl (Zofran Odt Prepack) 1 bottle MISC SEEINSTR ONE Stop: 03/26/20 03:08 Vital Signs Vital signs: Vital Signs - 8 hr 03/25/20 23:43 03/26/20 01:28 03/26/20 02:21 Temperature 98.2 F Pulse Rate 54 L 51 L 54 L Respiratory Rate 22 18 16 Blood Pressure 223/104 H Blood Pressure [Left Arm] 109/63 109/64 Pulse Oximetry 100 99 99 MDM - Abdominal Pain Lab Data Result diagrams: 03/25/20 23:59 03/25/20 23:59 Labs: Lab Results 03/25/20 03/25/20 Range/Units 23:59 23:59 WBC 8.5 (4.5-11.0) X10^3/uL RBC 4.63 (4.5-5.9) X10^6/uL Hgb 14.4 (13.5-17.5) g/dL Hct 41.8 (41-53) % MCV 90.4 (80-100) fL MCH 31.2 (26-34) PG MCHC 34.5 (30-36) % RDW 12.8 (11.6-14.8) % Plt Count 413 H (150-400) X10^3/uL Neut % (Auto) 81.5 H (50-75) % Lymph % (Auto) 12.6 L (25-40) % Miner % (Auto) 5.2 (3-14) % Eos % (Auto) 0.2 L (2-4) % Baso % (Auto) 0.5 (0-2) % Neut # (Auto) 7000 (8417-2855) /uL Lymph # (Auto) 1100 (0801-5923) /uL Miner # (Auto) 400 (0-900) /uL Eos # (Auto) 0 (0-450) /uL Baso # (Auto) 0 (0-100) /uL Sodium 136 L (137-145) mmol/L Potassium 4.2 (3.4-5.1) mmol/L Chloride 99 (98-107) mmol/L Carbon Dioxide 29 (22-32) mmol/L BUN 17 (9-20) mg/dL Creatinine 1.00 (0.66-1.25) mg/dL Estimated GFR > 60.0 (>60) mL/min BUN/Creatinine Ratio 17.0 (6-22) Glucose 125 H (80-110) mg/dL Calcium 9.7 (8.4-10.2) mg/dL Total Bilirubin 0.7 (0.2-1.3) mg/dL AST 29 (17-59) IU/L ALT 35 (<50) IU/L Alkaline Phosphatase 92 (38-126) U/L Total Protein 7.7 (6.3-8.2) g/dL Albumin 4.5 (3.5-5.0) g/dL Globulin 3.2 (1.7-4.1) g/dL Albumin/Globulin Ratio 1.4 (1.0-2.8) Lipase 114 (23-300) U/L Point of care testing: Urine Dip Bedside Urine Glucose Negative Bedside Urine Bilirubin - Negative Bedside Urine Ketone +++ 80 Urine Specific [place] 1.020 Bedside Urine Occult Blood - Negative Bedside Urine pH 6.0 Bedside Urine Protein +/- 15 Bedside Urine Urobilinogen - Negative Bedside Urine Nitrite - Negative Bedside Urine Leukocytes - Negative Esterase Imaging Data CT scan - abdomen/pelvis: Radiologist's Impression: No evidence of small-bowel obstruction. No free air. Mucosal edema and mesenteric edema. Findings are stable and consistent with a recent postop CT at this facility. Discharge Plan Departure Patient Disposition: Home Clinical Impression: Acute postoperative abdominal pain Vomiting Qualifiers: Vomiting type: unspecified Vomiting Intractability: intractable Nausea presence: with nausea Qualified Code(s): R11.2 - Nausea with vomiting, unspecified Instructions: DI for Abdominal Pain-Adult Activity Restrictions/Additional Instructions: I would recommend a bland diet, drink plenty of water. Dunnigan every 4 hours as needed for nausea. Dunnigan every 4 hours as needed for pain. Talk to your doctor today to arrange ongoing care for the nausea vomiting. Return here as needed. Prescriptions: New hydrocodone-acetaminophen [Dunnigan] 5-325 mg tablet 1 tab PO Q4H PRN (Reason: pain) Qty: 15 RF: 0 No Action ondansetron HCl 8 MG tablet 8 Qty: 0 RF: 0 OXYCODONE HCL/ACETAMINOPHEN (Oxycodone-Acetaminophen 5-500) 1 tab PO Q4HP Qty: 0 RF: 0 ramipril [Altace] 10 MG capsule 10 mg PO Q DAY Qty: 0 RF: 0 IRON HEME POLYPEPTIDE (Proferrin) Qty: 0 RF: 0 amoxicillin 250 MG capsule 500 mg PO BID Qty: 0 RF: 0 omeprazole 20 MG capsule,delayed release(DR/EC) 20 mg PO BID Qty: 0 RF: 0 ondansetron [Zofran ODT] 4 MG tablet,disintegrating 4 mg Sublingual Q6HP PRNQty: 5 RF: 0 oxycodone-acetaminophen [Percocet] 5 MG/325 MG tablet 1 tab PO Q6HP PRNQty: 10 RF: 0 oxycodone 5 mg tablet 5 mg PO Q6H PRN (Reason: pain) Qty: 10 RF: 0 omeprazole 40 mg capsule,delayed release(DR/EC) 40 mg PO DAILY Qty: 30 RF: 0 ondansetron HCl [Zofran] 4 mg tablet 4 mg PO Q6H PRN (Reason: nausea and vomiting) Qty: 5 RF: 0 Referrals: Angelito Garces [Primary Care Provider] -
[2020-03-26 00:19] LABS: Alanine Aminotransferase 35 IU/L (<50); Albumin 4.5 g/dL (3.5-5.0); Albumin Globulin Ratio 1.4 (1.0-2.8); Alkaline Phosphatase 92 U/L (38-126); Aspartate Aminotransferase 29 IU/L (17-59); Bilirubin Total 0.7 mg/dL (0.2-1.3); Blood Urea Nitrogen 17 mg/dL (9-20); Calcium 9.7 mg/dL (8.4-10.2); Carbon Dioxide 29 mmol/L (22-32); Chloride 99 mmol/L (98-107); Estimated Glomerular Filt Rate > 60.0 mL/min (>60); Globulin 3.2 g/dL (1.7-4.1); Glucose 125 mg/dL (80-110); HEMOLYSIS < 15 (0-50); Lipase 114 U/L (23-300); Potassium 4.2 mmol/L (3.4-5.1); Sodium 136 mmol/L (137-145); Total Protein 7.7 g/dL (6.3-8.2)
[2020-03-26] MEDS: ONDANSETRON 4 MG/2 ML INJ 8 MG IV (00:20)
[2020-03-26] MEDS: HYDROMORPHONE 1 MG INJ IV (00:20)
[2020-03-26] MEDS: SODIUM CHLORIDE 0.9% 1,000 ML 1000 ML IV (00:30)
[2020-03-26 01:28] VITALS: BP 109/63; PULSE 51; RESP 18; O2SAT 99
[2020-03-26] MEDS: KETOROLAC 60 MG/2 ML VIAL 30 MG IV (02:17)
[2020-03-26 02:21] VITALS: BP 109/64; PULSE 54; RESP 16; O2SAT 99
[2020-03-26 03:15] VITALS: BP 128/64; PULSE 49; RESP 16; O2SAT 99
[2020-03-26] MEDS: HYDROCODONE/ACET 5/325 PREPACK 1 BOTTLE MISC (03:28)
[2020-03-26] MEDS: ONDANSETRON 4 MG ODT PREPACK 1 BOTTLE MISC (03:28)
== END 2020-03-26 03:33 | disposition home or self-care (01) ==
PROVIDERS: Emergency Provider Emergency Medicine; PCP Family Medicine
DX: G89.18 Other acute postprocedural pain (principal); R10.13 Epigastric pain; R11.2 Nausea with vomiting, unspecified
CPT/HCPCS: 36415; 74177; 80053; 81003; 83690; 85025; 96361; 96374; 96375; 99284; J1170; J1885; J2405; Q9967

== ENCOUNTER → 2021-11-01 09:25 | Outpatient (CLI) | payer MEDICARE, OTHER, SELFPAY ==
[2021-11-01 18:49] LABS: Creatinine Urine Random 92.5 mg/dL
[2021-11-01 18:53] LABS: Alanine Aminotransferase 20 IU/L (<50); Albumin 3.9 g/dL (3.5-5.0); Albumin Globulin Ratio 1.4 (1.0-2.8); Alkaline Phosphatase 74 U/L (38-126); Aspartate Aminotransferase 28 IU/L (17-59); BUN Creatinine Ratio 11.5 (6-22); Bilirubin Total 0.4 mg/dL (0.2-1.3); Blood Urea Nitrogen 12 mg/dL (9-20); Calcium 9.1 mg/dL (8.4-10.2); Carbon Dioxide 31 mmol/L (22-32); Chloride 107 mmol/L (98-107); Cholesterol 146 mg/dL (140-199); Estimated Glomerular Filt Rate > 60.0 mL/min (>60); Globulin 2.8 g/dL (1.7-4.1); Glucose 114 mg/dL (80-110); HDL Cholesterol 58 mg/dL (40-60); HEMOLYSIS < 15 (0-50); LDL Cholesterol Calculated 75 mg/dL (<100); Potassium 4.2 mmol/L (3.4-5.1); Sodium 140 mmol/L (137-145); Total Protein 6.7 g/dL (6.3-8.2); Triglycerides 64 mg/dL (35-150)
[2021-11-01 18:57] LABS: Microalbumin Urine Random < 0.6 mg/dL (0-1.6)
== END ==
PROVIDERS: PCP Family Medicine; Visit Provider Family Medicine
DX: I10 Essential (primary) hypertension (principal)
CPT/HCPCS: 80053; 80061; 82043; 82570

== ENCOUNTER → 2022-06-17 13:32 | Outpatient (CLI) | payer MEDICARE, OTHER, SELFPAY ==
[2022-06-17 20:46] LABS: C-Reactive Protein Quant < 0.5 mg/dL (<1.0)
[2022-06-17 21:27] LABS: Erythrocyte Sedimentation Rate 3 MM/HR (0-15)
== END ==
PROVIDERS: PCP Family Medicine; Visit Provider Orthopaedic Surgery
DX: Z96.653 Presence of artificial knee joint, bilateral (principal)
CPT/HCPCS: 85651; 86140

== ENCOUNTER → 2023-02-05 12:01 | Outpatient (CLI) | payer MEDICARE, OTHER, SELFPAY ==
[2023-02-05 20:02] LABS: Add Manual Diff / Slide Review NO; Basophils Absolute Auto 100 /uL (0-100); Eosinophils Absolute Auto 100 /uL (0-450); Eosinophils Percent Auto 0.5 % (2-4); Hematocrit 46.3 % (41-53); Hemoglobin 15.9 g/dL (13.5-17.5); Lymphocytes Absolute Auto 900 /uL (1100-4500); Lymphocytes Percent Auto 8.8 % (25-40); Mean Corpuscular HGB Conc 34.4 % (30-36); Mean Corpuscular Hemoglobin 30.5 PG (26-34); Mean Corpuscular Volume 88.7 fL (80-100); Monocytes Absolute Auto 800 /uL (0-900); Monocytes Percent Auto 7.4 % (3-14); Neutrophils Absolute Auto 8900 /uL (1500-7000); Neutrophils Percent Auto 82.3 % (50-75); Platelet Count 279 X10^3/uL (150-400); Red Blood Cell Count 5.23 X10^6/uL (4.5-5.9); Red Cell Distribution Width 13.8 % (11.6-14.8); White Blood Cell Count 10.8 X10^3/uL (4.5-11.0)
[2023-02-05 20:14] LABS: Albumin 4.5 g/dL (3.5-5.0); Albumin Globulin Ratio 1.5 (1.0-2.8); Alkaline Phosphatase 107 U/L (38-126); Aspartate Aminotransferase 34 IU/L (17-59); BUN Creatinine Ratio 16.7 (6-22); Bilirubin Total 0.9 mg/dL (0.2-1.3); Blood Urea Nitrogen 16 mg/dL (9-20); Calcium 9.5 mg/dL (8.4-10.2); Carbon Dioxide 20 mmol/L (22-32); Chloride 105 mmol/L (98-107); Cholesterol 161 mg/dL (140-199); Estimated Glomerular Filt Rate > 60 mL/min (>60); Glucose 199 mg/dL (80-110); HDL Cholesterol 59 mg/dL (40-60); HEMOLYSIS 20 (0-50); LDL Cholesterol Calculated 78 mg/dL (<100); Potassium 4.3 mmol/L (3.4-5.1); Sodium 137 mmol/L (137-145); Total Protein 7.5 g/dL (6.3-8.2); Triglycerides 122 mg/dL (35-150)
[2023-02-05 20:19] LABS: Alanine Aminotransferase 26 IU/L (<50)
[2023-02-05 20:45] LABS: TSH w/ Reflex to FT4 0.93 uIU/mL (0.47-4.68)
[2023-02-05 21:03] LABS: Vitamin B12 180 pg/mL (239-931)
[2023-02-06 23:43] LABS: x Labcorp Estim. Avg Glu (eAG) 117 mg/dL (.); x Labcorp Hemoglobin A1c 5.7 % (4.8-5.6)
== END ==
PROVIDERS: PCP Family Medicine; Visit Provider Family Medicine
DX: H40.009 Preglaucoma, unspecified, unspecified eye (principal); R63.4 Abnormal weight loss; I10 Essential (primary) hypertension; G89.29 Other chronic pain; R10.9 Unspecified abdominal pain; R11.10 Vomiting, unspecified; Z11.59 Encounter for screening for other viral diseases; Z12.5 Encounter for screening for malignant neoplasm of prostate; Z13.1 Encounter for screening for diabetes mellitus; Z13.6 Encounter for screening for cardiovascular disorders; Z13.220 Encounter for screening for lipoid disorders
CPT/HCPCS: 80053; 80061; 82607; 83036; 84443; 85025

== ENCOUNTER → 2024-04-27 10:52 | Outpatient (CLI) | payer MEDICARE, OTHER, SELFPAY ==
[2024-04-27 21:15] LABS: Add Manual Diff / Slide Review NO; Basophils Absolute Auto 0 /uL (0-100); Basophils Percent Auto 0.7 % (0-2); Eosinophils Absolute Auto 100 /uL (0-450); Eosinophils Percent Auto 2.3 % (2-4); Hematocrit 42.8 % (41-53); Hemoglobin 14.9 g/dL (13.5-17.5); Lymphocytes Absolute Auto 1900 /uL (1100-4500); Lymphocytes Percent Auto 33.9 % (25-40); Mean Corpuscular HGB Conc 34.8 % (30-36); Mean Corpuscular Hemoglobin 32.1 PG (26-34); Monocytes Absolute Auto 500 /uL (0-900); Monocytes Percent Auto 9.6 % (3-14); Neutrophils Absolute Auto 3000 /uL (1500-7000); Neutrophils Percent Auto 53.5 % (50-75); Platelet Count 270 X10^3/uL (150-400); Red Blood Cell Count 4.65 X10^6/uL (4.5-5.9); Red Cell Distribution Width 13.4 % (11.6-14.8); White Blood Cell Count 5.6 X10^3/uL (4.5-11.0)
[2024-04-27 22:30] LABS: Hemoglobin A1C% w Est Avg Glu 5.6 % (4.0-6.0)
[2024-04-27 22:32] LABS: Alanine Aminotransferase 18 IU/L (<50); Albumin 3.9 g/dL (3.5-5.0); Albumin Globulin Ratio 1.3 (1.0-2.8); Alkaline Phosphatase 85 U/L (38-126); Aspartate Aminotransferase 28 IU/L (17-59); BUN Creatinine Ratio 11.5 (6-22); Bilirubin Total 0.7 mg/dL (0.2-1.3); Blood Urea Nitrogen 12 mg/dL (9-20); Calcium 8.8 mg/dL (8.4-10.2); Carbon Dioxide 27 mmol/L (22-32); Chloride 108 mmol/L (98-107); Estimated Glomerular Filt Rate > 60 mL/min (>60); Glucose 105 mg/dL (80-110); HEMOLYSIS < 15 (0-50); Potassium 4.6 mmol/L (3.4-5.1); Sodium 138 mmol/L (137-145); Total Protein 6.9 g/dL (6.3-8.2)
[2024-04-27 23:25] LABS: Vitamin B12 212 pg/mL (239-931)
== END ==
PROVIDERS: PCP Family Medicine; Visit Provider Family Medicine
DX: R11.10 Vomiting, unspecified (principal); R73.03 Prediabetes; E53.8 Deficiency of other specified B group vitamins; Z98.84 Bariatric surgery status; R10.9 Unspecified abdominal pain; G89.29 Other chronic pain; I10 Essential (primary) hypertension; Z98.0 Intestinal bypass and anastomosis status
CPT/HCPCS: 80053; 82607; 83036; 85025

== ENCOUNTER → 2025-01-04 11:29 | Outpatient (CLI) | payer MEDICARE, OTHER, SELFPAY ==
[2025-01-04 18:46] LABS: Add Manual Diff / Slide Review NO; Basophils Absolute Auto 100 /uL (0-100); Basophils Percent Auto 1.1 % (0-2); Eosinophils Absolute Auto 100 /uL (0-450); Hematocrit 44.5 % (41-53); Hemoglobin 15.2 g/dL (13.5-17.5); Lymphocytes Absolute Auto 2000 /uL (1100-4500); Lymphocytes Percent Auto 33.8 % (25-40); Mean Corpuscular HGB Conc 34.1 % (30-36); Mean Corpuscular Hemoglobin 31.3 PG (26-34); Mean Corpuscular Volume 91.7 fL (80-100); Monocytes Absolute Auto 600 /uL (0-900); Monocytes Percent Auto 9.6 % (3-14); Neutrophils Absolute Auto 3200 /uL (1500-7000); Neutrophils Percent Auto 53.5 % (50-75); Platelet Count 212 X10^3/uL (150-400); Red Blood Cell Count 4.85 X10^6/uL (4.5-5.9); Red Cell Distribution Width 13.4 % (11.6-14.8); White Blood Cell Count 5.9 X10^3/uL (4.5-11.0)
[2025-01-04 18:51] LABS: Hemoglobin A1C% w Est Avg Glu 5.3 % (4.0-6.0)
[2025-01-04 19:45] LABS: Vitamin B12 523 pg/mL (239-931)
[2025-01-04 20:03] LABS: Creatinine Urine Random 79.07 mg/dL
[2025-01-04 20:11] LABS: Microalbumin Urine Random < 0.6 mg/dL (0-1.6)
== END ==
PROVIDERS: PCP Family Medicine; Visit Provider Physician Assistant Medical
DX: R21 Rash and other nonspecific skin eruption (principal); R73.03 Prediabetes; L29.9 Pruritus, unspecified; E53.8 Deficiency of other specified B group vitamins
CPT/HCPCS: 82043; 82570; 82607; 83036; 85025